=== PATIENT | female | born 1950 | race Caucasian/White ===

== ENCOUNTER → 2021-11-05 14:26 | Outpatient (CLI) | payer MEDICARE, SELFPAY ==
--- NOTE | 2021-11-05 14:28 | DI.RAD.S_ITS ---
PROCEDURE: XR KNEE LT 3V INDICATIONS: Left knee pain > R; suspect OA TECHNIQUE: 3 views of the knee were acquired. COMPARISON: [facility], CR, XR KNEE RT 3V, 11/05/2021, 14:17. FINDINGS: Bones: No fractures or dislocations. Mild degenerative change. No suspicious bony lesions. Soft tissues: No joint effusion. No suspicious soft tissue calcifications. IMPRESSION: Mild left knee DJD. Dictated by: Ike Suresh M.D. on 11/05/2021 at 15:56 Approved by: Ike Suresh M.D. on 11/05/2021 at 15:56
--- NOTE | 2021-11-05 14:28 | DI.RAD.S_ITS ---
PROCEDURE: XR KNEE RT 3V INDICATIONS: Left knee pain > R; suspect OA TECHNIQUE: 3 views of the knee were acquired. COMPARISON: [facility], CR, XR KNEE LT 3V, 11/05/2021, 14:17. FINDINGS: Bones: No fractures or dislocations. Mild degenerative change. No suspicious bony lesions. Soft tissues: No joint effusion. No suspicious soft tissue calcifications. IMPRESSION: Mild degenerative change of the right knee. Dictated by: Ike Suresh M.D. on 11/05/2021 at 15:54 Approved by: Ike Suresh M.D. on 11/05/2021 at 15:55
== END ==
PROVIDERS: PCP Family Medicine; Referring Provider Physician Assistant; Visit Provider Physician Assistant
DX: M25.561 Pain in right knee (principal); M25.562 Pain in left knee; M17.12 Unilateral primary osteoarthritis, left knee
CPT/HCPCS: 73562

== ENCOUNTER → 2022-08-10 09:59 | Outpatient (CLI) | payer MEDICARE, SELFPAY ==
--- NOTE | 2022-08-10 | DI.MG.S_ITS ---
BILATERAL DIGITAL SCREENING MAMMOGRAM 3D/2D WITH CAD: 08/10/2022 CLINICAL: Routine screening. Comparison is made to exams dated: 05/03/2018 mammogram, 06/13/2014 mammogram, and 03/19/2009 mammogram - [facility]. There are scattered areas of fibroglandular density in both breasts (category b / 25%-50% glandular tissue). Current study was also evaluated with a Computer Aided Detection (CAD) system. There is a new focal asymmetry in the right breast at 10 o'clock middle depth. There is an oval mass in the left breast at 1 o'clock middle depth. No other significant masses or calcifications are seen in either breast. IMPRESSION: INCOMPLETE: NEEDS ADDITIONAL IMAGING EVALUATION The new focal asymmetry in the right breast at 10 o'clock middle depth is indeterminate. Additional views with possible ultrasound are recommended. The oval mass in the left breast at 1 o'clock middle depth is indeterminate. Additional views with possible ultrasound are recommended. Based on the Tyrer Cuzick model (a risk assessment model) the patient's lifetime risk is 3.7% and her 10 year risk is 2.3%. According to the ACR, ACS, and NCCN guidelines, an annual breast MRI exam along with mammogram is recommended if the patient's lifetime risk is 20% or greater. This exam was interpreted at Station ID: [id number]. NOTE: For mammograms, a report in lay terms will be sent to the patient. Approximately 15% of breast malignancies will not be visualized mammographically. In the management of a palpable breast mass, a negative mammogram must not discourage biopsy of a clinically suspicious lesion. Electronically Signed By: Dejon Gayle M.D. lc/:08/10/2022 11:54:49 letter sent: Additional Imaging Needed ACR BI-RADS Category 0: Incomplete 3340F
== END ==
PROVIDERS: PCP Family Medicine; Referring Provider Family Medicine; Visit Provider Family Medicine
DX: Z12.31 Encounter for screening mammogram for malignant neoplasm of breast (principal)
CPT/HCPCS: 77063; 77067

== ENCOUNTER → 2022-08-19 10:52 | Outpatient (CLI) | payer MEDICARE, SELFPAY ==
[2022-08-19 12:25] LABS: Hemoglobin A1C% w Est Avg Glu 5.5 % (4.0-6.0)
[2022-08-19 12:48] LABS: Alanine Aminotransferase 13 IU/L (<35); Albumin 3.7 g/dL (3.5-5.0); Albumin Globulin Ratio 1.2 (1.0-2.8); Alkaline Phosphatase 95 U/L (38-126); Aspartate Aminotransferase 21 IU/L (14-36); BUN Creatinine Ratio 18.2 (6-22); Bilirubin Total 0.3 mg/dL (0.2-1.3); Blood Urea Nitrogen 12 mg/dL (7-17); Calcium 8.8 mg/dL (8.4-10.2); Carbon Dioxide 26 mmol/L (22-32); Chloride 97 mmol/L (98-107); Cholesterol 194 mg/dL (140-199); Estimated Glomerular Filt Rate > 60 mL/min (>60); Glucose 89 mg/dL (80-110); HDL Cholesterol 58 mg/dL (40-60); HEMOLYSIS < 15 (0-50); LDL Cholesterol Calculated 107 mg/dL (<100); Potassium 4.3 mmol/L (3.4-5.1); Sodium 129 mmol/L (137-145); Total Protein 6.7 g/dL (6.3-8.2); Triglycerides 147 mg/dL (35-150)
[2022-08-19 15:24] LABS: Creatinine Urine Random 45.1 mg/dL
[2022-08-19 15:29] LABS: Microalbumin Urine Random < 0.6 mg/dL (0-1.6)
== END ==
PROVIDERS: PCP Family Medicine; Referring Provider Family Medicine; Visit Provider Family Medicine
DX: R73.9 Hyperglycemia, unspecified (principal); E78.2 Mixed hyperlipidemia; I10 Essential (primary) hypertension
CPT/HCPCS: 36415; 80053; 80061; 82043; 82570; 83036

== ENCOUNTER → 2022-09-04 09:52 | Outpatient (CLI) | payer MEDICARE, SELFPAY ==
--- NOTE | 2022-09-04 09:53 | DI.US.S_ITS ---
LIMITED ULTRASOUND OF RIGHT BREAST: 09/04/2022 CLINICAL: Bilateral Additional views. Comparison is made to exams dated: 09/04/2022 mammogram, 08/10/2022 mammogram - [facility], and 05/03/2018 mammogram - [facility]. Color flow ultrasound of the right breast 10 o'clock region was performed. Herman scale images of the real-time examination were reviewed. There is a 0.7 cm x 0.5 cm x 0.2 cm oval cyst with a smooth internal wall in the right breast at 10 o'clock posterior depth 8 cm from the nipple. This oval cyst is hypoechoic. This finding may correspond with the mammographic finding, but appears larger sonographically and may be a separate finding. IMPRESSION: PROBABLY BENIGN The 0.7 cm x 0.5 cm x 0.2 cm oval cyst in the right breast is probably benign. A follow-up mammogram and an ultrasound in 6 months is recommended to demonstrate stability. This exam was interpreted at Station ID: [id number]. Electronically Signed By: Asa hendesron/isreal:09/04/2022 12:10:17 Ultrasound BI-RADS: 3 Probably benign
--- NOTE | 2022-09-04 09:53 | DI.US.S_ITS ---
LIMITED ULTRASOUND OF LEFT BREAST: 09/04/2022 CLINICAL: Additional bilateral views. Comparison is made to exams dated: 09/04/2022 ultrasound, 09/04/2022 mammogram, 08/10/2022 mammogram - [facility], and 05/03/2018 mammogram - [facility]. Color flow ultrasound of the left breast 2 o'clock region was performed. Herman scale images of the real-time examination were reviewed. There is a 0.5 cm x 0.4 cm x 0.3 cm oval cyst with a smooth internal wall in the left breast at 2 o'clock posterior depth 6 cm from the nipple. This oval cyst is hypoechoic. This correlates with mammography findings. Color flow imaging demonstrates that there is no vascularity present. IMPRESSION: PROBABLY BENIGN The 0.5 cm x 0.4 cm x 0.3 cm oval cyst in the left breast is consistent with a complicated cyst and is probably benign. A follow-up mammogram and an ultrasound in 6 months is recommended to demonstrate stability. This exam was interpreted at Station ID: [id number]. Electronically Signed By: Asa henderson/isreal:09/04/2022 12:04:39 letter sent: Followup Recommended Ultrasound BI-RADS: 3 Probably benign
--- NOTE | 2022-09-04 10:27 | DI.MG.S_ITS ---
Procedure: MM diagnostic mammo BI BILATERAL DIGITAL DIAGNOSTIC MAMMOGRAM 3D/2D: 09/04/2022 CLINICAL: Additional evaluation requested from prior study. Comparison is made to exams dated: 08/10/2022 mammogram - [facility] and 05/03/2018 mammogram - [facility]. There are scattered areas of fibroglandular density in both breasts (category b / 25%-50% glandular tissue). There is a new 0.2 cm round focal asymmetry with an obscured margin in the right breast at 10 o'clock middle depth. This is seen in additional views. There is a 5 mm oval mass with a circumscribed margin in the left breast at 1 o'clock middle depth. This is seen in additional views. No other significant masses or calcifications are seen in either breast. IMPRESSION: INCOMPLETE: NEEDS ADDITIONAL IMAGING EVALUATION The new 0.2 cm round focal asymmetry in the right breast at 10 o'clock middle depth is indeterminate. An ultrasound is recommended. The 5 mm oval mass in the left breast at 1 o'clock middle depth is indeterminate. An ultrasound is recommended. Based on the Tyrer Cuzick model (a risk assessment model) the patient?s lifetime risk is 3.7% and her 10 year risk is 2.3%. According to the ACR, ACS, and NCCN guidelines, an annual breast MRI exam along with mammogram is recommended if the patient?s lifetime risk is 20% or greater. Continued Report - Page 2 of 2 Patient Name: RANJITH SORENSEN date: 1950 Sex: F Attending Physician: Tiesha Indications: Date: 09/04/2022 12:03 At the request of: JESUS EARLY Procedure: MM diagnostic mammo BI This exam was interpreted at Station ID: [id number]. NOTE: For mammograms, a report in lay terms will be sent to the patient. Approximately 15% of breast malignancies will not be visualized mammographically. In the management of a palpable breast mass, a negative mammogram must not discourage biopsy of a clinically suspicious lesion. Electronically Signed By: Asa henderson/albarad:09/04/2022 12:03:10 ACR BI-RADS Category 0: Incomplete 3340F
[2022-09-04 13:54] LABS: Sodium Urine Random 70 mmol/L (30-90)
[2022-09-07 14:01] LABS: Osmolality Urine 520 mOsmol/kg (.)
== END ==
PROVIDERS: PCP Family Medicine; Referring Provider Family Medicine; Visit Provider Family Medicine
DX: R92.8 Other abnormal and inconclusive findings on diagnostic imaging of breast (principal); N60.01 Solitary cyst of right breast; N60.02 Solitary cyst of left breast; E87.1 Hypo-osmolality and hyponatremia
CPT/HCPCS: 76642; 77066; 83935; 84300; G0279

== ENCOUNTER → 2023-06-02 13:28 | Outpatient (CLI) | payer MEDICARE, SELFPAY ==
--- NOTE | 2023-06-02 | DI.MG.S_ITS ---
BILATERAL DIGITAL DIAGNOSTIC MAMMOGRAM 3D/2D SHORT-TERM FOLLOW-UP: 06/02/2023 CLINICAL: Short term follow up for bilateral breasts. Comparison is made to exams dated: 09/04/2022 mammogram, 08/10/2022 mammogram - [facility], and 05/03/2018 mammogram - [facility]. There are scattered areas of fibroglandular density in both breasts (category b / 25%-50% glandular tissue). There is a stable 0.2 cm round focal asymmetry with an obscured margin in the right breast at 10 o'clock middle depth. There is a stable 5 mm oval mass with a circumscribed margin in the left breast at 1 o'clock middle depth. No other significant masses or calcifications are seen in either breast. IMPRESSION: INCOMPLETE: NEEDS ADDITIONAL IMAGING EVALUATION The stable 0.2 cm round focal asymmetry in the right breast at 10 o'clock middle depth is indeterminate. The stable 5 mm oval mass in the left breast at 1 o'clock middle depth is indeterminate. A targeted ultrasound of the bilateral breasts is recommended and will be performed immediately following this exam. Based on the Tyrer Cuzick model (a risk assessment model) the patient's lifetime risk is 3.7% and her 10 year risk is 2.3%. According to the ACR, ACS, and NCCN guidelines, an annual breast MRI exam along with mammogram is recommended if the patient's lifetime risk is 20% or greater. This exam was interpreted at Station ID: [id number]. NOTE: For mammograms, a report in lay terms will be sent to the patient. Approximately 15% of breast malignancies will not be visualized mammographically. In the management of a palpable breast mass, a negative mammogram must not discourage biopsy of a clinically suspicious lesion. Electronically Signed By: Mayra iglesias/:06/02/2023 14:06:41 ACR BI-RADS Category 0: Incomplete 3340F
--- NOTE | 2023-06-02 13:31 | DI.US.S_ITS ---
LIMITED ULTRASOUND OF LEFT BREAST AND AXILLA: 06/02/2023 CLINICAL: Patient returns today to evaluate a focal asymmetry in the left breast. Comparison is made to exams dated: 06/02/2023 mammogram, 09/04/2022 ultrasound, 09/04/2022 mammogram, 08/10/2022 mammogram - [facility], 05/03/2018 mammogram, and 06/13/2014 mammogram - [facility]. Color flow ultrasound of the left breast axilla was performed on the areas of interest. Herman scale images of the real-time examination were reviewed. There is a stable oval cyst with a smooth internal wall in the left breast at 2 o'clock posterior depth. This oval cyst is anechoic with posterior acoustic enhancement. This correlates with mammography findings. Color flow imaging demonstrates that there is no vascularity present. IMPRESSION: BENIGN There is no sonographic evidence of malignancy. The stable oval cyst in the left breast is consistent with a simple cyst and is benign. Return to annual mammogram screening schedule is recommended. This exam was interpreted at Station ID: [id number]. Electronically Signed By: Mayra iglesias/:06/02/2023 14:36:56 letter sent: Normal Exam Ultrasound BI-RADS: 2 Benign
--- NOTE | 2023-06-02 14:28 | DI.US.S_ITS ---
ULTRASOUND OF RIGHT BREAST: 06/02/2023 CLINICAL: Patient returns today to evaluate a focal asymmetry in the right breast. Comparison is made to exams dated: 06/02/2023 mammogram, 09/04/2022 ultrasound, 09/04/2022 mammogram, 08/10/2022 mammogram - [facility], 05/03/2018 mammogram, and 06/13/2014 mammogram - [facility]. Ultrasound of the right breast was performed on the area of interest. Herman scale images of the real-time examination were reviewed. There is a stable oval cyst with a smooth internal wall in the right breast at 10 o'clock posterior depth. This oval cyst is anechoic with posterior acoustic enhancement. This finding may correspond with the mammographic finding, but appears larger sonographically and may be a separate finding. IMPRESSION: BENIGN There is no sonographic evidence of malignancy. The stable oval cyst in the right breast is consistent with a simple cyst and is benign. Return to annual mammogram screening schedule is recommended. This exam was interpreted at Station ID: [id number]. Electronically Signed By: Mayra iglesias/:06/02/2023 14:39:17 letter sent: Normal Exam Ultrasound BI-RADS: 2 Benign
== END ==
LOC: MAMMO 13:31
PROVIDERS: PCP Family Medicine; Referring Provider Family Medicine; Visit Provider Family Medicine
DX: R92.8 Other abnormal and inconclusive findings on diagnostic imaging of breast (principal); N60.01 Solitary cyst of right breast; N60.02 Solitary cyst of left breast
CPT/HCPCS: 76642; 77066; G0279

== ENCOUNTER → 2024-04-05 10:38 | Outpatient (CLI) | payer MEDICARE, SELFPAY ==
[2024-04-05 12:10] LABS: Alanine Aminotransferase 13 IU/L (<35); Albumin 4.1 g/dL (3.5-5.0); Albumin Globulin Ratio 1.3 (1.0-2.8); Alkaline Phosphatase 76 U/L (38-126); Aspartate Aminotransferase 25 IU/L (14-36); BUN Creatinine Ratio 14.9 (6-22); Bilirubin Total 0.5 mg/dL (0.2-1.3); Blood Urea Nitrogen 11 mg/dL (7-17); Calcium 9.2 mg/dL (8.4-10.2); Carbon Dioxide 25 mmol/L (22-32); Chloride 100 mmol/L (98-107); Cholesterol 243 mg/dL (140-199); Estimated Glomerular Filt Rate > 60 mL/min (>60); Globulin 3.2 g/dL (1.7-4.1); Glucose 100 mg/dL (80-110); HDL Cholesterol 69 mg/dL (40-60); HEMOLYSIS < 15 (0-50); LDL Cholesterol Calculated 156 mg/dL (<100); Potassium 3.9 mmol/L (3.4-5.1); Sodium 132 mmol/L (137-145); Total Protein 7.3 g/dL (6.3-8.2); Triglycerides 90 mg/dL (35-150)
[2024-04-05 12:20] LABS: Hemoglobin A1C% w Est Avg Glu 5.5 % (4.0-6.0)
[2024-04-05 16:07] LABS: Creatinine Urine Random 46.76 mg/dL
[2024-04-05 16:14] LABS: Microalbumin Urine Random < 0.6 mg/dL (0-1.6)
== END ==
PROVIDERS: PCP Family Medicine; Referring Provider Family Medicine; Visit Provider Family Medicine
DX: I10 Essential (primary) hypertension (principal); E66.9 Obesity, unspecified; R13.10 Dysphagia, unspecified; N95.2 Postmenopausal atrophic vaginitis
CPT/HCPCS: 36415; 80053; 80061; 82043; 82570; 83036

== ENCOUNTER → 2024-04-10 11:14 | Outpatient (CLI) | payer MEDICARE, SELFPAY ==
--- NOTE | 2024-04-10 11:15 | DI.RAD.S_ITS ---
PROCEDURE: FL BARIUM SWALLOW INDICATIONS: globus sensation COMPARISON: None. FINDINGS: Function: No radiographic evidence for aspiration or penetration. There is normal esophageal peristalsis. Small hiatal hernia. No elicited gastroesophageal reflux. There is normal transit of a calibrated barium tablet through the esophagus into the stomach. Morphology: Air-contrast images demonstrate normal mucosal morphology. Single contrast views show no esophageal strictures, extrinsic mass effects, or diverticula. Limited images of the stomach demonstrate normal appearance. IMPRESSION: Small hiatal hernia, with no evidence of gastroesophageal reflux. Dictated by: Madan HERRERA Interpreted: Javi Coles MD on 04/10/2024 at 12:04 Transcribed by: INES on 04/10/2024 at 12:06 Approved by: Javi Coles M.D. on 04/12/2024 at 8:17
== END ==
PROVIDERS: PCP Family Medicine; Referring Provider Family Medicine; Visit Provider Family Medicine
DX: K44.9 Diaphragmatic hernia without obstruction or gangrene (principal); R09.A2 Foreign body sensation, throat
CPT/HCPCS: 74220

== ENCOUNTER 2024-06-16 08:46 | Day surgery (SDC) | payer MEDICARE, SELFPAY ==
[2024-06-16 09:43] VITALS: BP 155/79; PULSE 58; RESP 16; TEMP 36.7; O2SAT 100
[2024-06-16] MEDS: SODIUM CHLORIDE 0.9% 1,000 ML 250 ML IV (09:48)
--- NOTE | 2024-06-16 10:25 | PM.HP.IH.1 ---
History of Present Illness History of Present Illness Date Patient Seen: 06/16/24 Time Patient Seen: 10:26 Chief complaint: Screening Colonoscopy Narrative: 73-year-old white female, previous colonoscopy 8 years ago with polyps. No changes in health or bowel habits. [facility] Medical History PAF (paroxysmal atrial fibrillation) (08/22/17) Left elbow fracture (2015) Displaced pilon fracture of left tibia, initial encounter for open fracture type I or II (05/10/17) CTS (carpal tunnel syndrome) (1989) Colon polyps (2011) Endometriosis (~1979) Surgical History History of cholecystectomy History of reduction of closed fracture (05/10/17) Anesthesia History of oophorectomy, unilateral (1979) Status post cholecystectomy (08/21/17) History of carpal tunnel repair (1989) Status post hernia repair (1979) Family History Brother Age: 73 COPD (chronic obstructive pulmonary disease) Hypertension Diabetes mellitus Mother Age: 96 Edema Pacemaker Family/Other Smoker Family/Other No problems noted. Father Diabetes mellitus Kidney failure Social History marital status: number of children: 2 household members: spouse lives independently: Yes caregiver/support person: No housing: house Smoking Status: Never smoker second hand exposure: No alcohol intake: current substance use type: does not use Meds Home Medications and Allergies Home Medications Medication Instructions Recorded Confirmed Type [grega] ##0 03/10/17 04/03/24 History cholecalciferol (vitamin D3) 50 2,000 unit PO DAILY 05/04/18 04/03/24 History mcg (2,000 unit) capsule estradiol 10 mcg vaginal tablet 10 mcg vaginal 2XW #18 tabs 11/18/22 04/03/24 Rx hydrocortisone 2.5 % topical cream 1 applic topical DAILY PRN itching 01/05/23 04/03/24 Rx #20 grams meloxicam 7.5 mg tablet 7.5 - 15 mg (1 - 2 x 7.5 mg) PO 02/24/24 06/16/24 Rx DAILY PRN for joint pain #30 tabs Disabled Parking #1 ea 04/03/24 04/03/24 Rx metoprolol tartrate 50 mg tablet 50 mg PO BID #180 tabs 05/22/24 06/16/24 Rx Allergies Allergy/AdvReac Type Severity Reaction Status Date / Time Penicillins [PENICILLINS] Allergy Unknown Verified 06/16/24 09:46 Review of Systems Review of Systems ROS: Yes All systems reviewed with the patient and are negative except as otherwise documented Exam Vital Signs (past 8 hours): - 06/16/24 09:43 Temperature 98.1 F Pulse Rate 58 L Respiratory Rate 16 Blood Pressure 155/79 H Pulse Oximetry 100 Oxygen Delivery Method Room Air Oxygen Delivery Method Room Air Assessment & Plan Assessment and plan (1) History of colon polyps: Problem details: Colonoscopy done at in [place] Status: Chronic Assessment & Plan narrative: Patient presents for colonoscopy Risks, benefits, alternatives to colonoscopy explained, including but not limited to bowel perforation or other serious complication requiring surgery at less than 1 in 5000 colonoscopies, abdominal pain, cramping or bleeding and less than 1% of colonoscopies, and the chances that we find a diagnosis that would require further intervention of about 2%. Patient agrees to proceed. Time-Based Coding :: [TOTAL MINUTES] spent with patient and on the chart (including review of chart, obtaining history, exam, reviewing outside data, placing orders, documenting exam and treatment plan, and counseling patient) on [DATE]. PROFEE Payroll Consultant Document charge(s): No
--- NOTE | 2024-06-16 10:48 | PM.OP.COLON ---
Operative Date/Time/Diagnoses Date of procedure: 06/16/24 Time of procedure: 10:48 Pre-op diagnosis: Personal history of polyp Post-op diagnosis: same Procedure & Clinicians Study performed: Screening colonoscopy Indications: Personal history of polyps Surgeon: Ramon Gomez Procedure Notes SCOAP/Timeout: Performed Procedure in detail: Time-out was performed. Mac was induced. Patient was placed in left lateral decubitus position. The perineum was inspected without any gross abnormality. Lubricated pediatric colonoscope was inserted and advanced to the cecum. The terminal ileum was intubated. The colonoscope was withdrawn slowly inspecting the circumference of the colon. Very small polyps may have been missed, prep quality was adequate. Retroflexed view of the rectum showed small, non prolapsed nonbleeding internal hemorrhoids. The scope was withdrawn the patient was taken to PACU in good condition. Scope withdrawal time: 6 Sedation minutes: 9 Findings: divertiulosis Specimen(s): none sent Complications: none Impression: Sigmoid diverticulosis Post-procedure Recommendations: Colonoscopy in 10 years Follow up: as needed Disposition: PACU
[2024-06-16 10:51] VITALS: BP 98/48; PULSE 59; RESP 12; TEMP 36.3; O2SAT 96
[2024-06-16 10:56] VITALS: BP 126/61; PULSE 58; RESP 14; O2SAT 100
[2024-06-16 11:01] VITALS: BP 110/56; PULSE 61; RESP 14; O2SAT 99
[2024-06-16 11:05] VITALS: BP 151/74; PULSE 57; RESP 14; TEMP 36.7; O2SAT 100
== END 2024-06-16 11:20 | disposition home or self-care (01) ==
PROVIDERS: PCP Family Medicine; Referring Provider Surgery; Visit Provider Surgery
PROC: 0DJD8ZZ Inspection of Lower Intestinal Tract, Via Natural or Artificial Opening Endoscopic (ICD-10-PCS; CPT 45378; principal; 2024-06-16 10:15)
DX: Z12.11 Encounter for screening for malignant neoplasm of colon (principal); Z86.0100 Personal history of colon polyps, unspecified; K57.30 Diverticulosis of large intestine without perforation or abscess without bleeding; K64.8 Other hemorrhoids; I48.0 Paroxysmal atrial fibrillation
CPT/HCPCS: G0105; J2704

== ENCOUNTER → 2024-07-12 10:34 | Outpatient (CLI) | payer MEDICARE, SELFPAY ==
--- NOTE | 2024-07-12 10:36 | DI.MG.S_ITS ---
BILATERAL DIGITAL SCREENING MAMMOGRAM 3D/2D WITH CAD: 07/12/2024 CLINICAL: Routine screening. Comparison is made to exams dated: 06/02/2023 mammogram, 09/04/2022 mammogram, and 08/10/2022 mammogram - [facility]. There are scattered areas of fibroglandular density (category b / 25%-50% glandular tissue). Current study was also evaluated with a Computer Aided Detection (CAD) system. No significant masses, calcifications, or other findings are seen in either breast. There has been no significant interval change. IMPRESSION: NEGATIVE There is no mammographic evidence of malignancy. A 1 year screening mammogram is recommended. Based on the Tyrer Cuzick model (a risk assessment model) the patient's lifetime risk is 3.3% and her 10 year risk is 2.5%. According to the ACR, ACS, and NCCN guidelines, an annual breast MRI exam along with mammogram is recommended if the patient's lifetime risk is 20% or greater. This exam was interpreted at Station ID: [id number]. NOTE: For mammograms, a report in lay terms will be sent to the patient. Approximately 15% of breast malignancies will not be visualized mammographically. In the management of a palpable breast mass, a negative mammogram must not discourage biopsy of a clinically suspicious lesion. Electronically Signed By: Valentina Diallo M.D., Ph.D. drake/isreal:07/12/2024 13:12:45 letter sent: Normal Exam ACR BI-RADS Category 1: Negative
[2024-07-12 11:29] LABS: Cholesterol 243 mg/dL (140-199); HDL Cholesterol 64 mg/dL (40-60); LDL Cholesterol Calculated 155 mg/dL (<100); Triglycerides 121 mg/dL (35-150)
== END ==
LOC: MAMMO 10:35
PROVIDERS: PCP Family Medicine; Referring Provider Family Medicine; Visit Provider Family Medicine
DX: Z12.31 Encounter for screening mammogram for malignant neoplasm of breast (principal); E78.2 Mixed hyperlipidemia
CPT/HCPCS: 36415; 77063; 77067; 80061